=== PATIENT | female | born 1955 | race Caucasian/White ===

== ENCOUNTER 2016-07-17 10:20 | Day surgery (SDC) | payer OTHER ==
[~2016-07-17] VITALS: Ht 167.6 cm; Wt 60.8 kg
[~2016-07-17 10:20] MED LIST: 0.9% Sodium Chloride 1,000 ML IV PRN; ALPR0.5T8 PO; LACT1CAP65 PO; LOPE2CAP PO; Sodium Chloride LOK Flush 10 mL Syringe IV PRN; TRAZ-115 PO; fentaNYL-PF 50 mCg/mL 2 mL Inj IVPUSH PRN
[2016-07-17 11:20] VITALS: BP 146/76; PULSE 74; RESP 16; O2SAT 100
[2016-07-17] MEDS ORDERED: BUDE3CAP7 PO (11:25)
[2016-07-17 12:46] VITALS: BP 155/82; PULSE 84; RESP 15; O2SAT 99
[2016-07-17 12:57] VITALS: BP 137/67; PULSE 80; RESP 15; O2SAT 99
[2016-07-17 13:07] VITALS: BP 134/67; PULSE 75; RESP 15; O2SAT 99
--- NOTE | 2016-07-17 22:21 | ENDO ---
[address] [address] ENDOSCOPY PROCEDURE PATIENT: JONNA ARTIS : 1955 MR#: [id number] ADMIT: 07/17/2016 JOB ID: [id number] PRIMARY PROVIDER: Jj Roa DO PROCEDURE: Esophagogastroduodenoscopy with biopsies. INDICATIONS: A 61-year-old female with chronic intermittent diarrhea and a history of lymphocytic colitis. Additionally, she has had some epigastric pain of uncertain etiology. Following some probiotic, she had some black stools that were also of unknown etiology. EGD is thus pursued. EQUIPMENT: GIF H 180 J. SEDATION: 1. 8 mg Versed. 2. 200 mcg fentanyl. COMPLICATIONS: None identified. PROCEDURE INFORMATION: After the risks and benefits were explained, written and verbal informed consent was obtained. The patient was brought into the endoscopy suite and placed into the left lateral decubitus position. Sedation was achieved as above. The scope was introduced into the mouth through the bite block, and advanced to the second portion of the duodenum. The scope was slowly withdrawn to carefully examine the mucosa for any defects or lesions. Retroflexed views were accomplished in the stomach, the stomach was decompressed and the scope removed the patient who tolerated the procedure well. FINDINGS: 1. Duodenum: No significant mucosal pathology identified throughout. Perhaps a slightly atrophic duodenum. Random biopsies were taken for exclusion of celiac in the context of diarrhea and lymphocytic colitis. 2. Stomach: No outlet obstruction. No mass lesions. No ulcers. [id number] diffuse gastropathy noted and random stomach biopsies were thus acquired for exclusion of H. pylori or any other underlying pathology. Retroflexed views of the LES were unremarkable. 3. Esophagus: The squamocolumnar junction correlated with the top of the gastric folds. The GE junction was at 41 cm from the incisors. No acute erosive changes. No strictures. No mass lesions. ENDOSCOPIC DIAGNOSIS: Gastroduodenopathy. RECOMMENDATIONS: 1. Await histopathology. 2. If there are no histologic pathologic findings, then HIDA scan will be pursued here.
--- NOTE | 2016-07-18 12:13 | PATH ---
SURGICAL PATHOLOGY Attending Physician:Arpita Ba CASE STATUS: Signed Out PATIENT NAME: JONNA ARTIS PID: [id number] : 1955 DATE COLLECTED:07/17/2016 21:43 SPECIMEN: 1: Duodenum, Biopsy 2: Gastric, Biopsy CLINICAL HISTORY: 1). DUODENAL BIOPSY 2). GASTRIC BIOPSIES FINAL DIAGNOSIS: 1.DUODENAL BIOPSY: DUODENAL MUCOSA WITH NO DIAGNOSTIC ALTERATIONS. NEGATIVE FOR INFLAMMATION, CELIAC, DYSPLASIA AND MALIGNANCY. 2.GASTRIC BIOPSIES: GASTRIC BODY MUCOSA WITH NO DIAGNOSTIC ALTERATIONS. Negative for Helicobacter organisms. Negative for intestinal metaplasia. Negative for dysplasia and malignancy. ICD10 code R10.9 GROSS DESCRIPTION: The specimen is received in two formalin filled containers labeled with the patient's name. 1). The specimen is sublabeled "duodenal" and consists of 2 portions of tissue which aggregate to 0.4 x 0.3 x 0.3 CM. The specimen is entirely submitted in cassette 1A. 2). The specimen is sublabeled "gastric" and consists of a 0.4 x 0.4 x 0.3 CM portion of tissue which is entirely submitted in cassette 2A. 07/17/2016 DAC MICRO DESCRIPTION: See diagnosis. ICD-9 CODES: CPT CODES: 1: 96056 2: 20768 Electronically Signed Out Shanti Martinez MD [facility] [address], [place] [address] Technical component performed at [facility], [address] [place] [address] Ave[address], [place], [address]
== END 2016-07-17 23:59 | disposition home or self-care (01) ==
LOC: END 10:20
PROVIDERS: ATTEND Internal Medicine Gastroenterology
DX: R10.13 Epigastric pain (principal); K29.90 Gastroduodenitis, unspecified, without bleeding; R19.7 Diarrhea, unspecified; K52.832 Lymphocytic colitis
CPT/HCPCS: 43239; J2250; J7030